=== PATIENT | male | born 1995 | race Two or more races ===

== ENCOUNTER 2025-04-11 14:45 | Emergency (ER) | payer MEDICAID, SELFPAY ==
[2025-04-11 14:53] VITALS: BP 186/125; PULSE 122; RESP 16; TEMP 36.8; O2SAT 97; BMI 27.1
--- NOTE | 2025-04-11 14:58 | EDNOTE_ITS ---
ED Medical Clearance RME/HPI General Chief complaint: Medical Clearance Stated complaint: SKILLED NURSING CLEARANCE Time Seen by Provider: 04/11/25 14:54 Arrival date/time: 04/11/25 14:45 RME / HPI RME / HPI Narrative: 29-year-old male patient came in for evaluation regarding medical clearance. Apparently patient was found on the side of the road stumbling, looks like drunk, however patient denies any alcohol abuse. On my initial evaluation ralf man was noted to be intoxicated, answers simple questions, and denies any complaints. Denies any head trauma denies any neck pain denies any chest pain. Patient denies any alcohol abuse. In the triage patient was noted to be hypertensive with a blood pressure 186/125 heart rate of 122. Related Information Previous Rx's ?Medication ?Instructions ?Recorded acetaminophen 500 mg tablet 1,000 mg (2 x 500 mg) PO Q 6H PRN 09/22/23 (Tylenol Extra Strength) pain #30 tabs ibuprofen 600 mg tablet 600 mg PO Q6H PRN pain #30 t abs 09/22/23 diphenhydramine HCl 25 mg capsule 25 mg PO TID PRN sle ep #30 caps 04/14/24 (Banophen) Allergies Allergy/AdvReac Type Severity Reaction Status Date / Time bees Allergy Hives Uncoded 04/14/24 18:41 Review of Systems Review of Systems Narrative Review of Systems: Review of system reviewed and within normal limits except mentioned in HPI ED Exam Narrative Physical exam: VITAL SIGNS: Reviewed. GENERAL APPEARANCE: Alert and oriented x 3, follows simple commands, no acute distress, intoxicated HEAD AND FACE: Non-traumatic. ENT: PERRL, pink conjunctivitis, eyelid no trauma, Mucous membrane moist. NECK: Supple, nontender, no nuchal rigidity. CHEST: No tenderness, no crepitus, no paradoxical movement, no retractions. LUNGS: Clear, well ventilated, symmetric, no rales, no wheezing, no ronchi, no stridor, good breath sounds bilaterally. HEART: Regular rate, regular rhythm, no murmur, no gallops. ABDOMEN: Soft, positive bowel sounds, nondistended, no guarding, nontender, no rebound, no masses, RECTAL: Deferred. GENITAL: Deferred. NEUROLOGICAL: Gross motor function intact sensory function intact, Appropriate for age. MUSCULOSKELETAL: low back nontender, full range of motion. EXTREMITIES: Nontender, full range of motion. SKIN: Color pink, dry, no rash, no lacerations, no abrasions, no contusions. LYMPHATICS: Deferred. Course Quality Measures none Orders Category Date Time Status EKG (ED ONLY) *Do not use* NOW Care 04/11/25 14:55 Completed EKG (ED Only) Stat Exams 04/11/25 14:54 Ordered Ringers Lactated 1000 ml [Lactated Ringers] 1,000 ml Med 04/11/25 14:55 Discontinued IV 999 mls/hr cloNIDine HCL [Catapres] Med 04/11/25 14:58 Discontinued 0.1 mg PO X1 ONE Vital Signs Vital signs: Vital Signs Temperature 98.3 F 04/11/25 14:53 Pulse Rate 122 H 04/11/25 14:53 Respiratory Rate 16 04/11/25 14:53 Blood Pressure 186/125 H 04/11/25 14:53 Pulse Oximetry (%) 97 04/11/25 14:53 Oxygen Delivery Method Room Air 04/11/25 14:53 Medical Clearance MDM Narrative MDM Narrative:: 29-year-old male patient came in for evaluation regarding medical clearance. Apparently patient was found on the side of the road stumbling, looks like drunk, however patient denies any alcohol abuse. On my initial evaluation patient was noted to be intoxicated, answers simple questions, and denies any complaints. Denies any head trauma denies any neck pain denies any chest pain. Patient denies any alcohol abuse. In the triage patient was noted to be hypertensive with a blood pressure 186/125 heart rate of 122. Patient was given clonidine, blood pressure went down to 133/81, heart rate of 117. Patient refused blood drawn, patient refused EKG. Patient signed AMA. Patient is medically cleared Patient data External records reviewed:: None Clinical information provided by:: patient and law enforcement Social determinants that could affect healthcare access:: substance use Patient has the following chronic illnesses:: None How is presenting disease/condition affected by chronic disease/condition?: no chronic disease Evaluation data The following diagnostics were reviewed and interpreted by me:: other (specify) (None) Lab and/or radiology exams considered but not ordered:: None Interpretation Summary: None Medications / Prescriptions Medications or Prescriptions considered but not ordered:: Stable Medication administrations:: Medication Administration History Discontinued Medications Clonidine (Clonidine Hcl 0.1 Mg Tablet) 0.1 mg PO X1 ONE Stop: 04/11/25 14:59 Last Admin: 04/11/25 15:07 Dose: 0.1 mg Documented By: SAMMY Lactated Ringer's (Lactated Ringers) 1,000 mls @ 999 mls/hr IV .Q1H1M ONE Stop: 04/11/25 15:55 Last Admin: 04/11/25 15:08 Dose: Not Given Documented By: SAMMY Non-Admin Reason: Patient Refused Clonidine Consultations Consultation(s) initiated? (list below): No Diagnosis Medical Clearance Differential Diagnosis: other (Hypertension, tachycardia, drug abuse, medical clearance) Most likely diagnosis given after review of the tests above:: Medical clearance for incarceration Admission Indicated Admission indicated?: not indicated Explain why admission is indicated or not indicated:: Patient is medically cleared for incarceration Admission Request Was there a request for admission?: No Disposition Plan Disposition Plan: Discharge Discharge Attestation Discharge Attestation: Patient condition: Stable Discharge Plan Plan Patient Disposition: Left Against Medical Advice Prescriptions/Referrals Prescriptions/Med Rec: No Action diphenhydramine HCl [Banophen] 25 mg capsule 25 mg PO TID PRN (Reason: sleep) Qty: 30 0RF acetaminophen [Tylenol Extra Strength] 500 mg tablet 1,000 mg PO Q6H PRN (Reason: pain) Qty: 30 0RF ibuprofen 600 mg tablet 600 mg PO Q6H PRN (Reason: pain) Qty: 30 0RF Problem List Clinical Impression: Medical clearance for incarceration Patient/Caregiver Discharge Instructions Print Language: Jordanian
[2025-04-11 15:07] VITALS: BP 186/125; PULSE 122
--- NOTE | 2025-04-11 15:17 | PC.NURSE ---
[employer] officer amadeo, signing patient out to be evaluated by Provider.
--- NOTE | 2025-04-11 15:48 | PC.NURSE ---
pt refused lab work and ekg. dr ashby aware
--- NOTE | 2025-04-11 15:53 | PC.NURSE ---
Patient signed out AMA, officer Radha taking patient to [facility] [employer] ATTENDANT made aware. AMA form signed and placed on chart.
[2025-04-11 16:04] VITALS: BP 133/81; PULSE 117; RESP 16; O2SAT 98
== END 2025-04-11 16:05 | disposition left against medical advice (07) ==
LOC: SERX 16:07
PROVIDERS: Emergency Provider Emergency Medicine
DX: Z02.89 Encounter for other administrative examinations (principal); Z53.29 Procedure and treatment not carried out because of patient's decision for other reasons
CPT/HCPCS: 80053; 80307; 80320; 82550; 85025; 99283; A9270; G0480